=== PATIENT | female | born 2005 | race Caucasian/White ===

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

== ENCOUNTER 2024-05-01 13:16 | Emergency (ER) | payer OTHER, SELFPAY ==
[2024-05-01 13:20] VITALS: BP 118/79; PULSE 88; RESP 16; TEMP 36.9; O2SAT 96; BMI 31.7
--- NOTE | 2024-05-01 13:28 | ED.GENADULT ---
HPI - General Adult General Chief complaint: General Medical Stated complaint: rt ear piercing pain Time Seen by Provider: 05/01/24 13:26 Source: patient Mode of arrival: ambulatory Limitations: no limitations History of Present Illness ED Provider: Artemio NANCE HPI narrative: 18 yold male with pmh of strep presents to the for fever, bodyaches, chills, dizziness describes as fatigue, and right ear lobe pain. patient this right ear lobe piercing may be infected. patient states ear lobe is red and tendernesss. Patient denies any chest pain, shortness of breath, abdominal pain, sore throat, chest pain, abdominal pain, dysuria, hematuria, pleurisy, diarrhea, rash, recent long travel, or recent surgery. Related Data Previous Rx's ?Medication ?Instructions ?Recorded amoxicillin 875 mg-potassium 1 tab PO BID 7 days #14 tabs 07/12/23 clavulanate 125 mg tablet cephalexin 500 mg capsule 500 mg PO QID 7 days #28 caps 05/01/24 naproxen 500 mg tablet 500 mg PO BID PRN pain #14 tabs 05/01/24 Allergies Allergy/AdvReac Type Severity Reaction Status Date / Time No Known Allergies Allergy Verified 05/01/24 13:20 Review of Systems Review of Systems: Right ear low pacing pain. Fever, body aches, chills Yes all other systems are reviewed and are negative [facility] Social History Social History Advance Directives: No Advance Directives Information Provided: No Physical Exam ED Vital Signs: Vital Signs - 24 hr 05/01/24 13:20 05/01/24 14:48 Temperature 98.5 F 98.5 F Pulse Rate 88 88 Respiratory Rate 16 16 Blood Pressure 118/79 118/79 Pulse Oximetry 96 96 Oxygen Delivery Method Room Air Room Air BMI result Body Mass Index 31.7 Const General: cooperative, healthy appearing, comfortable, no acute distress, well developed, alert, awake and Physically active Orientation/consciousness: patient oriented x3 HENMT Head: Yes normal to inspection, Yes No palpable skull fracture present, Yes normocephalic and Yes atraumatic Ears: hearing grossly normal bilaterally, external ears normal, TM's normal bilaterally, TM normal on the right, TM normal on the left, EAC's normal, mastoids normal and no periauricular adenopathy Outer ear/TM images: 1. Slight swelling of anterior and posterior earlobe with erythema and tenderness. [place]ing removed. yellow discharge. no profuse drainage. Throat: Yes posterior oropharynx normal, Yes tonsils normal and Yes uvula midline Eyes General: appearance normal, both eyes and all related structures Neck Neck: Yes normal visual inspection, Yes full ROM, Yes no lymphadenopathy, Yes no meningeal signs, Yes trachea midline, Yes supple, No anterior neck swelling and No tender Chest Chest palpation & inspection: normal inspection of the chest and normal palpation of entire chest wall Resp Effort & Inspection: normal respiratory effort and able to speak in complete sentences Auscultation: clear to auscultation bilaterally Cardio Jugular venous distension: no JVD Heart sounds: S1 normal heart sound present and S2 normal heart sound present GI Inspection: Yes normal to inspection Palpation (GI): Soft to palpation, not firm, nontender, no guarding and not rigid General: No CVA tenderness and Yes no CVA tenderness Back/Spine/Pelvis Back: no CVA tenderness, No CVA tenderness and No back tenderness Skin General skin exam: no rashes or lesions noted, elasticity normal and turgor normal Neuro General: patient oriented x3, gait normal, tone normal, moves all extremities, Normal light touch and pain sensation, no meningeal signs, no focal motor deficits, CN's II-XI intact bilaterally and normal sensation to monofilament Extrem General: Yes normal to inspection, Yes full ROM and Yes capillary refill normal Psych Appearance: grossly normal, well kempt and not disheveled Medical Decision Making Medical Decision Making MDM Narrative: 18 yold female with fever, right earlobe redness and tenderness and chills with body aches. Patient denies any abdominal pain, chest pain, shortness of breath, coughing, neck swelling, drooling, change in voice, dysuria, hematuria, flank pain, diarrhea, sore throat, or rash. Exam indicates most cellulitis no indication for incision drainage of earlobe infection. Patient started antibiotics. Not suspecting mastoiditis, osteomyelitis, pneumonia, stroke, myocardial infarction, meningitis, or any life-threatening diagnostics. Patient explained worrisome signs and informed to return to the ED immediately. Differential Diagnosis Differential Diagnoses: The differential diagnosis associated with the presentation includes (Cellulitis, abscess, SARS, strep) Admission/Observation Consideration of admission/observation: Escalation of care including admission/observation considered Lab Data Labs: Lab Results 05/01/24 Range/Units 13:35 Influenza Type A (PCR) NEGATIVE (Negative) Influenza Type B (PCR) NEGATIVE (Negative) RSV RNA Qual (PCR) NEGATIVE (Negative) SARS-CoV-2 RNA (RT-PCR) NEGATIVE (Negative) S. pyogenes GrpA JAREN Negative (Negative) Independent Historian Clinical information obtained from an independent historian. History obtained from or confirmed by: Other (Patient) External Record Review External record reviewed: Other (Prior visits) Prescription Management I considered prescription management with: Pain Medication and Antibiotic Discharge Plan Discharge Clinical Impression: Cellulitis Patient Disposition: Home, Self-Care Instructions: Cellulitis (ED), Warm Compress or Soak (ED) Additional Instructions: Recommend warm compress on right ear lobes 4 times a day for 15 minutes. Return to ED immediately for worsening pain, increased swelling, redness, neck pain, neck stiffness, headache, fever, chills, dizziness, chest pain, shortness of breath, abdominal pain, diarrhea, dysuria, hematuria, flank pain, or any other concerning symptoms. Recommend follow-up with primary care provider. Prescriptions: New cephalexin 500 mg capsule 500 mg PO QID 7 Days Qty: 28 0RF naproxen 500 mg tablet 500 mg PO BID PRN (Reason: pain) Qty: 14 0RF No Action amoxicillin-pot clavulanate 875-125 mg tablet 1 tab PO BID 7 Days Qty: 14 0RF Stand Alone Forms: Work/School Release Interventions: ED Discharge Assessment Last Done: 05/01/24 14:48 Discharge Date/Time: 05/01/24 14:48 Print Language: Spanish
[2024-05-01 13:48] LABS: IDNOW Serial# 58CA691E; Strep A Nucleic Acid Negative (Negative)
[2024-05-01 14:16] LABS: Influenza A PCR NEGATIVE (Negative); Influenza B PCR NEGATIVE (Negative); Resp Syncy Virus RNA Qual PCR NEGATIVE (Negative); SARS COV2 PCR INHOUSE NEGATIVE (Negative)
[2024-05-01 14:48] VITALS: BP 118/79; PULSE 88; RESP 16; TEMP 36.9; O2SAT 96
== END 2024-05-01 14:48 | disposition home or self-care (01) ==
PROVIDERS: Physician Assistant; Emergency Provider Emergency Medicine
DX: R50.9 Fever, unspecified (principal); M79.10 Myalgia, unspecified site; R42 Dizziness and giddiness; Z03.818 Encounter for observation for suspected exposure to other biological agents ruled out
CPT/HCPCS: 0241U; 87651; 99282; 99283